=== PATIENT | female | born 2000 | race Caucasian/White ===

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

== ENCOUNTER 2022-07-05 15:05 | Outpatient (CLI) | payer OTHER, SELFPAY ==
[2022-07-05 15:45] LABS: Strep Group A RT-PCR Negative (Negative)
[2022-07-05 15:56] LABS: Influenza A QL RT-PCR Negative (Negative); Influenza B QL RT-PCR Negative (Negative); SARS-CoV-2 RNA PCR Positive (Negative)
== END 2022-07-05 15:06 | disposition home or self-care (01) ==
PROVIDERS: PCP Internal Medicine; Visit Provider Nurse Practitioner Family
DX: U07.1 COVID-19 (principal); J06.9 Acute upper respiratory infection, unspecified; J02.9 Acute pharyngitis, unspecified
CPT/HCPCS: 87502; 87651; C9803; U0003; U0005

== ENCOUNTER 2022-07-06 00:04 | Emergency (ER) | payer OTHER, SELFPAY ==
--- NOTE | ~2022-07-06 | XR_ITS ---
EXAMINATION: XR chest 1V portable DATE: 07/06/2022 02:05 INDICATION: Dyspnea. COVID positive. TECHNIQUE: frontal view of the chest was obtained. COMPARISON: None FINDINGS: The lungs are clear with no focal airspace opacities, pulmonary edema, pleural effusion or pneumothor ax. The cardiomediastinal silhouette is normal. Visualized bones and soft tissues are unremarkable. IMPRESSION: 1. No acute cardiopulmonary disease. Reviewed, dictated and finalized at location A.
[2022-07-06 00:18] VITALS: BP 128/52; PULSE 115; RESP 20; TEMP 37.4; O2SAT 99
--- NOTE | 2022-07-06 00:27 | ECG_ITS ---
Measurements Intervals [place] Rate: 131 P: 43 IA: 134 QRS: 64 QRSD: 72 T: 19 QT: 304 QTc: 450 Interpretive Statements SINUS TACHYCARDIA NONSPECIFIC T-WAVE ABNORMALITY ABNORMAL ECG NO PREVIOUS ECG AVAILABLE FOR COMPARISON Electronically Signed On 07-06-2022 8:41:56 CDT by Prince Herr M.D.
[2022-07-06] MEDS: ACETAMINOPHEN 500 MG TABLET 1000 MG PO (00:28)
[2022-07-06] MEDS: IBUPROFEN 400 MG TABLET 800 MG PO (00:29)
[2022-07-06] MEDS: SODIUM CHLORIDE 0.9% IV 1,000 ML 999 ML IV CONT (00:47)
[2022-07-06 00:59] VITALS: BP 122/68; PULSE 120; RESP 20; O2SAT 98
--- NOTE | 2022-07-06 01:04 | ED.GENADULT ---
HPI - General Adult General Chief complaint: Upper Respiratory Infection Stated complaint: Generalized body aches History of Present Illness HPI narrative: is a 21-year-old female who was recently diagnosed with COVID presented ED with flu-like symptoms. The last 2 days she has been having headaches, body aches, decreased oral intake cough and congestion. She wants our primary care physician and obtain a COVID swab earlier today except she did not hear back on what the results were. The patient denies nausea vomiting or diarrhea. She denies chest pain or shortness of breath.She denies lower extremity edema or history of blood clots. Patient is vaccinated against COVID-19. Related Data Home Medications Medication Instructions Recorded Confirmed omeprazole 20 mg capsule,delayed 20 mg PO DAILY 06/02/21 07/06/22 release oxcarbazepine 300 mg tablet 300 mg PO BID 06/02/21 07/06/22 sertraline 100 mg tablet 150 mg PO DAILY 06/02/21 07/06/22 medroxyprogesterone 150 mg/mL 150 mg IM MONTHLY 07/06/22 07/06/22 intramuscular suspension nortriptyline 50 mg capsule 50 mg PO HS 07/06/22 07/06/22 trazodone 50 mg tablet 50 mg PO HS 07/06/22 07/06/22 Allergies Allergy/AdvReac Type Severity Reaction Status Date / Time No Known Allergies Allergy Verified 05/03/21 21:47 Review of Systems Review of Systems: CONSTITUTIONAL: Denies night sweats. EYES: No eye pain ENT: Denies rhinorrhea CARDIOVASCULAR: Denies palpitations RESPIRATORY: Denies hemoptysis GASTROINTESTINAL: Denies hematemesis GENITOURINARY: Denies hematuria. SKIN: Denies rash MUSCULOSKELETAL: Denies myalgia. NEUROLOGIC: Denies weakness. PSYCHIATRIC: Denies delusions PMFSH Past Medical History Medical History GERD (gastroesophageal reflux disease) Mood disorder Surgical History Surgical History No significant past surgical history Family History Family History Father Hypertension Diabetes mellitus Hyperlipidemia Social History Social History Smoking status: Never smoker Alcohol intake: never Additional occupation/education comments: works at [employer] [place] Gender identity (if verbalized by the patient): Female Sexual Orientation (if Verbalized by the Patient): Straight or Heterosexual Exam Narrative: APPEARANCE: No apparent distress. Head atraumatic. EYES: PERRLA/EOMI, NOSE: Normal no drainage NECK: Supple, Trachea midline RESPIRATORY: CTAB, No increased work of breathing. CARDIOVASCULAR: S1S2 appreciated, Tachycardic ABDOMINAL: Soft, nontender, nondistended, MUSCULOSKELETAl: No obvious deformities NEURO: Alert. Moving 4/4 extremities SKIN:: Warm, dry. Normal color PSYCHIATRIC: Normal affect Course Vital Signs Vital signs: Vital Signs Temperature 99.3 F 07/06/22 00:18 Pulse Rate 115 H 07/06/22 00:18 Respiratory Rate 20 07/06/22 00:18 Blood Pressure 128/52 L 07/06/22 00:18 Pulse Oximetry 99 07/06/22 00:18 Oxygen Delivery Room Air 07/06/22 00:18 Temperature 99.3 F 07/06/22 00:18 Pulse Rate 120 H 07/06/22 00:59 Respiratory Rate 20 07/06/22 00:59 Blood Pressure 122/68 07/06/22 00:59 Pulse Oximetry 98 07/06/22 00:59 Oxygen Delivery Room Air 07/06/22 00:59 Medical Decision Making [facility] Narrative Medical decision making narrative: this is a 21-year-old female presenting with flu-like symptoms after a positive COVID test. Patient was tachycardic here in the emergency department. Chest x-ray an EKG that order. She has been given a L of fluid. She has been given Motrin Tylenol for symptom control. Chest x-ray was unremarkable. EKG interpretation: Rhythm Sinus tachycardia, Rate 131, [place] -[normal], [place] -[normal], QRS [narrow], QTC [normal], T waves -[negative f
[2022-07-06 01:43] LABS: Basophils Absolute Auto 0.01 K/mm3 (0.00-0.10); Basophils Percent Auto 0.2 % (0.0-1.0); Eosinophils Absolute Auto 0.04 K/mm3 (0.02-0.50); Eosinophils Percent Auto 0.7 % (1.0-6.0); Hematocrit 36.7 % (35.0-49.0); Hemoglobin 11.9 g/dL (12.0-15.0); Immature Granulocyte Absolute 0.01 K/mm3 (0.00-0.00); Immature Granulocyte Percent A 0.2 % (0.0-0.0); Lymphocytes Absolute Auto 0.72 K/mm3 (1.10-4.50); Lymphocytes Percent Auto 12.5 % (18.0-42.0); Mean Corpuscular HGB Conc 32.4 g/dL (32.0-36.0); Mean Corpuscular Hemoglobin 25.6 pg (27.0-31.0); Mean Corpuscular Volume 79.1 fL (78.0-102.0); Mean Platelet Volume 9.6 fl (9.2-11.8); Monocytes Absolute Auto 0.51 K/mm3 (0.10-0.90); Monocytes Percent Auto 8.9 % (2.0-11.0); Neutrophils Absolute Auto 4.5 K/mm3 (1.7-7.2); Neutrophils Percent Auto 77.5 % (50.0-70.0); Platelet Count Result 217 K/mm3 (150-420); Red Blood Count 4.64 M/mm3 (4.20-5.40); Red Cell Distribution Width 13.7 % (11.6-14.4); White Blood Count 5.7 K/mm3 (4.8-10.8)
[2022-07-06 01:50] VITALS: TEMP 37.2
[2022-07-06 01:51] VITALS: TEMP 37.2
[2022-07-06 01:55] LABS: Anion Gap 11 mmol/L (8-16); Blood Urea Nitrogen 7 mg/dL (7-18); Calcium 8.4 mg/dL (8.5-10.1); Carbon Dioxide 23 mmol/L (21-32); Chloride 103 mmol/L (98-108); Estimated CRCL calculation 117 ml/min; Estimated Glomerular Filt Rate > 60; Glucose 133 mg/dL (70-99); Osmolality Calculated 284 mOsm/kg (285-295); Potassium 3.6 mmol/L (3.5-5.1); Sodium 137 mmol/L (136-145)
[2022-07-06 01:59] LABS: D Dimer 0.35 mg/L (0.19-0.50)
[2022-07-06 02:10] VITALS: BP 128/67; PULSE 120; RESP 20; TEMP 37.3; O2SAT 99
== END 2022-07-06 02:17 | disposition home or self-care (01) ==
PROVIDERS: Emergency Provider Emergency Medicine; PCP Internal Medicine
DX: U07.1 COVID-19 (principal)
CPT/HCPCS: 36415; 71045; 80048; 85025; 85380; 93005; 96360; 99283; A9270; J7030

== ENCOUNTER 2022-08-25 13:42 | Outpatient (CLI) | payer OTHER, SELFPAY ==
[2022-08-25 13:57] LABS: Basophils Absolute Auto 0.03 K/mm3 (0.00-0.10); Basophils Percent Auto 0.3 % (0.0-1.0); Eosinophils Absolute Auto 0.08 K/mm3 (0.02-0.50); Eosinophils Percent Auto 0.8 % (1.0-6.0); Hematocrit 40.4 % (35.0-49.0); Hemoglobin 13.3 g/dL (12.0-15.0); Immature Granulocyte Absolute 0.04 K/mm3 (0.00-0.00); Immature Granulocyte Percent A 0.4 % (0.0-0.0); Lymphocytes Absolute Auto 2.43 K/mm3 (1.10-4.50); Lymphocytes Percent Auto 25.5 % (18.0-42.0); Mean Corpuscular HGB Conc 32.9 g/dL (32.0-36.0); Mean Corpuscular Volume 78.9 fL (78.0-102.0); Mean Platelet Volume 9.8 fl (9.2-11.8); Monocytes Absolute Auto 0.47 K/mm3 (0.10-0.90); Monocytes Percent Auto 4.9 % (2.0-11.0); Neutrophils Absolute Auto 6.5 K/mm3 (1.7-7.2); Neutrophils Percent Auto 68.1 % (50.0-70.0); Platelet Count Result 265 K/mm3 (150-420); Red Blood Count 5.12 M/mm3 (4.20-5.40); White Blood Count 9.5 K/mm3 (4.8-10.8)
[2022-08-25 13:59] LABS: Appearance Urine Clear (Clear); Bilirubin Urine Negative (Negative); Glucose Urine UA Negative (Negative); Ketones Urine Negative (Negative); Leukocyte Esterase Ur Negative LEU/UL (Negative); Nitrate Urine Negative (Negative); Protein Urine Negative (Negative); Urobilinogen Urine 0.2 mg/dL (0.2-1.0); pH Urine 6.5 (5.0-8.0)
[2022-08-25 14:28] LABS: Add Urine Microscopic? YES; Bacteria Urine 1+ /hpf; Blood Urine Trace-Intact (Negative); Color Urine Light Yellow (Yellow); RBC Urine 0-2 /hpf (0-2); Squamous Epithelial Cell Urine Few /hpf (Few); WBC Urine None seen /hpf (0-3)
[2022-08-25 15:00] LABS: Alanine Aminotransferase 23 U/L (14-59); Anion Gap 9 mmol/L (8-16); Aspartate Amino Transferase 19 U/L (15-37); Bilirubin,Total 0.5 mg/dL (0.00-1.00); Blood Urea Nitrogen 9 mg/dL (7-18); CRP 1.4 mg/dL (0.0-0.9); Carbon Dioxide 26 mmol/L (21-32); Chloride 104 mmol/L (98-108); Estimated Glomerular Filt Rate > 60; Ferritin 50 ng/mL (8-252); Glucose 97 mg/dL (70-99); Osmolality Calculated 286 mOsm/kg (285-295); Potassium 4.1 mmol/L (3.5-5.1); Sodium 139 mmol/L (136-145); Total Protein 7.4 g/dL (6.4-8.2)
[2022-08-25 15:01] LABS: Alkaline Phosphatase 112 U/L (50-130)
[2022-08-25 15:02] LABS: SPREG INTERNAL CONTROL Positive; Serum Qual hCG Negative
[2022-08-25 15:14] LABS: Amylase 46 U/L (25-115); Lipase 86 U/L (73-393)
== END 2022-08-25 13:43 | disposition home or self-care (01) ==
LOC: CHSLAB 13:44
PROVIDERS: PCP Internal Medicine; Visit Provider Internal Medicine
DX: R10.9 Unspecified abdominal pain (principal); E61.1 Iron deficiency
CPT/HCPCS: 36415; 80053; 81001; 82150; 82728; 83690; 84703; 85025; 86140

== ENCOUNTER 2022-09-06 07:21 | Outpatient (CLI) | payer OTHER, SELFPAY ==
--- NOTE | ~2022-09-06 | US_ITS ---
EXAMINATION: US pelvic complete w TV DATE: 09/06/2022 08:03 INDICATION: Bilateral pelvic pain TECHNIQUE: Multiple transabdominal and endovaginal sonographic images of the pelvis were obtained. COMPARISON: 04/24/2021 FINDINGS: The uterus measures 7.7 x 5.2 x 3.7 cm. The endometrial complex measures 6 mm. The right ov alden measures 2.6 x 1.8 x 1.7 cm. The left ovary measures 2.6 x 1.6 x 2.0 cm. There is normal vascular flow in the ovaries. There is no free fluid in the pelvis. IMPRESSION: 1. No sonographic correlate for the patient's symptoms. Reviewed, dictated and finalized at location A.
--- NOTE | ~2022-09-06 | US_ITS ---
EXAMINATION: US abdomen complete DATE: 09/06/2022 08:01 INDICATION: Abdominal pain and nausea TECHNIQUE: Multiple grayscale and Doppler ultrasound images of the abdomen were obtained. COMPARISON: None available FINDINGS: Bowel gas obscures visualization of the pancreas. The visualized portions of the pancreas a re unremarkable. The liver is normal with normal echogenicity and echotexture. No surface nodularity. Normal hepatopetal flow in the main portal vein. The gallbladder is normal with no abnormal wall thi ckening, pericholecystic fluid or stones. The normal common bile duct measures 3 mm. There was no son ographic Keith sign. The visualized portions of the aorta and inferior vena cava are normal. The right kidney measures 12.1 x 5.8 x 4.1 cm. The left kidney measures 11.2 x 4.9 x 5.3 cm. The kidn eys demonstrate normal parenchymal echogenicity. There is no hydronephrosis. The spleen is normal in appearance and measures 10.4 cm. IMPRESSION: 1. No sonographic correlate for the patient's symptoms. Reviewed, dictated and finalized at location A.
== END 2022-09-06 07:22 | disposition home or self-care (01) ==
LOC: CHSIMG 07:23
PROVIDERS: PCP Internal Medicine; Visit Provider Internal Medicine
DX: R10.9 Unspecified abdominal pain (principal)
CPT/HCPCS: 76700; 76830; 76856

== ENCOUNTER 2022-10-25 15:54 | Emergency (ER) | payer OTHER, SELFPAY ==
[2022-10-25 16:06] VITALS: PULSE 117; RESP 18; TEMP 36.6; O2SAT 98
--- NOTE | 2022-10-25 16:16 | PC.NURSE ---
Pt states she hasn't taken her daily meds for the last two days due to not feeling well.
--- NOTE | 2022-10-25 16:25 | ED.URI ---
HPI - URI/Sore Throat General Chief Complaint: Upper Respiratory Infection Stated Complaint: fever,bodyaches,vomiting starte coupledays ago Time Seen by Provider: 10/25/22 16:10 Source: patient and RN notes reviewed Mode of arrival: ambulatory Limitations: no limitations History of Present Illness MD elicited complaint: fever (102.0) and cough Onset (ago): day(s) (2 Sat AM at 10 AM) Consistency: constant Severity: moderate Description of mucous: clear Able to tolerate fluids by mouth: Yes Exacerbating factors: nothing Relieving factors: nothing Context: other(s) with similar symptoms Associated symptoms: chills, myalgias and headache Treatments prior to arrival: acetaminophen Related Data Home Medications Medication Instructions Recorded Confirmed omeprazole 20 mg capsule,delayed 20 mg PO DAILY 06/02/21 07/06/22 release oxcarbazepine 300 mg tablet 300 mg PO BID 06/02/21 07/06/22 sertraline 100 mg tablet 150 mg PO DAILY 06/02/21 07/06/22 medroxyprogesterone 150 mg/mL 150 mg IM MONTHLY 07/06/22 07/06/22 intramuscular suspension nortriptyline 50 mg capsule 50 mg PO HS 07/06/22 07/06/22 trazodone 50 mg tablet 50 mg PO HS 07/06/22 07/06/22 Allergies Allergy/AdvReac Type Severity Reaction Status Date / Time No Known Allergies Allergy Verified 10/25/22 16:13 [facility] Past Medical History Medical History GERD (gastroesophageal reflux disease) Mood disorder Surgical History Surgical History No significant past surgical history Family History Family History Father Hypertension Diabetes mellitus Hyperlipidemia Social History Social History Smoking status: Never smoker Alcohol intake: never Additional occupation/education comments: works at [employer] Gender identity (if verbalized by the patient): Female Sexual Orientation (if Verbalized by the Patient): Straight or Heterosexual Exam Const: General: healthy appearing, no acute distress and alert Nutritional Appearance: well nourished and obese Orientation/consciousness: patient oriented x3 Limitations: no limitations Other: Female tech in the room during examination. HENMT: Head: normal to inspection Ears: external ears normal Eyes: Conjunctivae: conjunctivae normal Pupils: Equal, round and reactive pupils present EOM: EOMs intact bilaterally Neck: Neck: normal visual inspection Resp: Effort & Inspection: normal respiratory effort Auscultation: clear to auscultation bilaterally Cardio: Rate: regular rate Rhythm: regular rhythm GI: GI Palp: Yes Soft to palpation and No Tenderness to palpation present (GI) Auscultation: normal bowel sounds Back/Spine/Pelvis: Cervical Spine: cervical ROM normal Thoracic/Lumbar Spine: thoraco-lumbar ROM normal Skin: General skin exam: normal color Rashes: no rashes Neuro: General: patient oriented x3, moves all extremities, no focal motor deficits and CN's II-XI intact bilaterally Speech: normal speech Gait exam (Neuro): Normal gait present Extrem: General: normal to inspection and no clubbing, cyanosis or edema Psych: Mental Status: mental status grossly normal Affect: normal affect Attitude: cooperative Course Course Emergency Course: I explained the patient that since she is more than 48 hours from start of symptoms that the Tamiflu medication will not work for her. She voiced understanding will get [id number] flu medicine to treat her symptoms. Vital Signs Vital signs: Vital Signs Temperature 36.6 C 10/25/22 16:06 Pulse Rate 117 H 10/25/22 16:06 Respiratory Rate 18 10/25/22 16:06 Pulse Oximetry 98 10/25/22 16:06 Oxygen Delivery Room Air 10/25/22 16:06 Temperature 36.1 C L 10/25/22 17:00 Pulse Rate 111 H 10/25/22 17:00 Respiratory Rate 1
--- NOTE | 2022-10-25 16:34 | PC.NURSE ---
accompanied Dr with examination.
[2022-10-25 16:40] LABS: Influenza A QL RT-PCR Positive (Negative); Influenza B QL RT-PCR Negative (Negative); SARS-CoV-2 RNA PCR Negative (Negative)
[2022-10-25 17:00] VITALS: BP 127/79; PULSE 111; RESP 18; TEMP 36.1; O2SAT 96
== END 2022-10-25 17:02 | disposition home or self-care (01) ==
PROVIDERS: Emergency Provider Emergency Medicine; PCP Internal Medicine
DX: J11.1 Influenza due to unidentified influenza virus with other respiratory manifestations (principal); Z20.822 Contact with and (suspected) exposure to COVID-19
CPT/HCPCS: 87636; 99283

== ENCOUNTER 2022-12-28 10:50 | Outpatient (CLI) | payer OTHER, SELFPAY ==
--- NOTE | ~2022-12-28 | XR_ITS ---
EXAMINATION: XR sinus min 3V INDICATION: Frequent upper respiratory tract infections, bilateral maxillary sinus infections TECHNIQUE: Four views of the paranasal sinuses are obtained on five radiographs COMPARISON: None available FINDINGS: The paranasal sinuses are well pneumatized. No definite sinus opacification is seen. Slight leftward deviation of the nasal septum. No facial fracture is identified. The soft tissues are unrem arkable. Impacted maxillary and mandibular molars are noted. IMPRESSION: 1. No evidence of sinusitis. If there is high clinical suspicion for sinusitis, CT of the sinuses is recommended. Reviewed, dictated and finalized at location L. INE OPERATOR
[2022-12-28 11:23] LABS: Basophils Absolute Auto 0.02 K/mm3 (0.00-0.10); Basophils Percent Auto 0.2 % (0.0-1.0); Eosinophils Absolute Auto 0.02 K/mm3 (0.02-0.50); Eosinophils Percent Auto 0.2 % (1.0-6.0); Hematocrit 40.7 % (35.0-49.0); Hemoglobin 13.2 g/dL (12.0-15.0); Immature Granulocyte Absolute 0.06 K/mm3 (0.00-0.00); Immature Granulocyte Percent A 0.5 % (0.0-0.0); Lymphocytes Absolute Auto 2.13 K/mm3 (1.10-4.50); Lymphocytes Percent Auto 16.9 % (18.0-42.0); Mean Corpuscular HGB Conc 32.4 g/dL (32.0-36.0); Mean Corpuscular Hemoglobin 26.1 pg (27.0-31.0); Mean Corpuscular Volume 80.6 fL (78.0-102.0); Mean Platelet Volume 9.4 fl (9.2-11.8); Monocytes Absolute Auto 0.63 K/mm3 (0.10-0.90); Neutrophils Absolute Auto 9.8 K/mm3 (1.7-7.2); Neutrophils Percent Auto 77.2 % (50.0-70.0); Platelet Count Result 284 K/mm3 (150-420); Red Blood Count 5.05 M/mm3 (4.20-5.40); Red Cell Distribution Width 13.7 % (11.6-14.4); White Blood Count 12.6 K/mm3 (4.8-10.8)
[2022-12-28 11:47] LABS: Alanine Aminotransferase 36 U/L (14-59); Albumin Level 3.8 g/dL (3.4-5.0); Alkaline Phosphatase 90 U/L (46-116); Anion Gap 8 mmol/L (8-16); Aspartate Amino Transferase 11 U/L (15-37); Bilirubin,Total 0.4 mg/dL (0.00-1.00); Blood Urea Nitrogen 12 mg/dL (7-18); Calcium 8.9 mg/dL (8.5-10.1); Carbon Dioxide 26 mmol/L (21-32); Chloride 103 mmol/L (98-108); Estimated Glomerular Filt Rate > 60; Glucose 125 mg/dL (70-99); Osmolality Calculated 284 mOsm/kg (285-295); Potassium 4.1 mmol/L (3.5-5.1); Sodium 137 mmol/L (136-145); Total Protein 7.3 g/dL (6.4-8.2)
== END 2022-12-28 10:51 | disposition home or self-care (01) ==
LOC: CHSLAB 10:52
PROVIDERS: PCP Internal Medicine; Visit Provider Nurse Practitioner Family
DX: R21 Rash and other nonspecific skin eruption (principal); J06.9 Acute upper respiratory infection, unspecified; J32.0 Chronic maxillary sinusitis
CPT/HCPCS: 36415; 70220; 80053; 85025

== ENCOUNTER 2023-01-24 13:46 | Outpatient (CLI) | payer OTHER, SELFPAY ==
[2023-01-24 14:30] LABS: Strep Group A RT-PCR NOT DETECTED (Negative)
[2023-01-24 14:32] LABS: SARS-CoV-2 RNA PCR Negative (Negative)
== END 2023-01-24 13:47 | disposition home or self-care (01) ==
LOC: CHSLAB 13:47
PROVIDERS: PCP Internal Medicine; Visit Provider Internal Medicine
DX: J02.9 Acute pharyngitis, unspecified (principal); Z20.822 Contact with and (suspected) exposure to COVID-19
CPT/HCPCS: 87651; U0003; U0005

== ENCOUNTER 2023-01-28 11:19 | Outpatient (CLI) | payer OTHER, SELFPAY ==
[2023-01-28 11:32] LABS: Basophils Absolute Auto 0.04 K/mm3 (0.00-0.10); Basophils Percent Auto 0.5 % (0.0-1.0); Eosinophils Absolute Auto 0.12 K/mm3 (0.02-0.50); Eosinophils Percent Auto 1.5 % (1.0-6.0); Hematocrit 39.5 % (35.0-49.0); Hemoglobin 13.2 g/dL (12.0-15.0); Immature Granulocyte Absolute 0.02 K/mm3 (0.00-0.00); Immature Granulocyte Percent A 0.3 % (0.0-0.0); Lymphocytes Absolute Auto 2.08 K/mm3 (1.10-4.50); Lymphocytes Percent Auto 26.5 % (18.0-42.0); Mean Corpuscular HGB Conc 33.4 g/dL (32.0-36.0); Mean Corpuscular Hemoglobin 26.8 pg (27.0-31.0); Mean Corpuscular Volume 80.1 fL (78.0-102.0); Mean Platelet Volume 9.7 fl (9.2-11.8); Monocytes Percent Auto 6.4 % (2.0-11.0); Neutrophils Absolute Auto 5.1 K/mm3 (1.7-7.2); Neutrophils Percent Auto 64.8 % (50.0-70.0); Platelet Count Result 259 K/mm3 (150-420); Red Blood Count 4.93 M/mm3 (4.20-5.40); Red Cell Distribution Width 13.1 % (11.6-14.4); White Blood Count 7.9 K/mm3 (4.8-10.8)
[2023-01-28 12:37] LABS: Alanine Aminotransferase 36 U/L (14-59); Albumin Level 3.7 g/dL (3.4-5.0); Alkaline Phosphatase 88 U/L (46-116); Anion Gap 12 mmol/L (8-16); Aspartate Amino Transferase 17 U/L (15-37); Bilirubin,Total 0.3 mg/dL (0.00-1.00); Blood Urea Nitrogen 7 mg/dL (7-18); Calcium 8.9 mg/dL (8.5-10.1); Carbon Dioxide 26 mmol/L (21-32); Chloride 105 mmol/L (98-108); Estimated Glomerular Filt Rate > 60; Glucose 112 mg/dL (70-99); Osmolality Calculated 295 mOsm/kg (285-295); Potassium 3.6 mmol/L (3.5-5.1); Sodium 143 mmol/L (136-145)
[2023-01-28 14:23] LABS: Hemoglobin A1C 5.5 % (<5.7)
== END 2023-01-28 11:20 | disposition home or self-care (01) ==
LOC: CHSLAB 11:21
PROVIDERS: PCP Internal Medicine; Visit Provider Nurse Practitioner Family
DX: R94.5 Abnormal results of liver function studies (principal); J01.00 Acute maxillary sinusitis, unspecified
CPT/HCPCS: 36415; 80053; 83036; 85025

== ENCOUNTER 2023-04-08 10:51 | Outpatient (CLI) | payer OTHER, SELFPAY ==
--- NOTE | ~2023-04-08 | XR_ITS ---
EXAMINATION: XR thoracic spine 3V DATE: 04/08/2023 11:19 INDICATION: Thoracic spine pain. Fall. TECHNIQUE: 3 views of thoracic spine were obtained. COMPARISON: None. FINDINGS: There is 3 degrees dextrocurvature of thoracic spine. Vertebral body heights are normal. In tervertebral disc heights are normal. There are endplate osteophytes at multiple levels. IMPRESSION: 1. Mild thoracic spondylosis. Reviewed, dictated and finalized at location A.
--- NOTE | ~2023-04-08 | XR_ITS ---
EXAMINATION: XR pelvis 1-2V DATE: 04/08/2023 11:19 INDICATION: Pelvic pain. Fall down stairs. TECHNIQUE: An anteroposterior view of the pelvis was obtained. COMPARISON: CT abdomen and pelvis 05/03/2021 FINDINGS: Bone alignment is normal. No fracture. Joint spaces are well maintained. IMPRESSION: 1. Normal pelvis. Reviewed, dictated and finalized at location A. IMPRESSION: 1. Normal pelvis.
== END 2023-04-08 10:52 | disposition home or self-care (01) ==
LOC: CHSIMG 10:55
PROVIDERS: PCP Internal Medicine; Visit Provider Nurse Practitioner Family
DX: M54.6 Pain in thoracic spine (principal); M43.04 Spondylolysis, thoracic region
CPT/HCPCS: 72072; 72170

== ENCOUNTER 2023-07-08 13:50 | Outpatient (CLI) | payer OTHER, SELFPAY ==
--- NOTE | ~2023-07-08 | XR_ITS ---
EXAM: XR lumbar spine 2-3V DATE: 07/08/2023 14:22 HISTORY: LOW BACK PAIN/PARESTHESIA OF LEG, more to RTsidefall in March . COMPARISON: None available. FINDINGS: IUD. 5 nonrib-bearing lumbar-type vertebral bodies. Bilateral sacralization of L5. Pedicle s intact. 2 mm retrolisthesis at L4-5. Vertebral body heights preserved. Disc spaces maintained. Norm al facets and posterior elements. No fracture or dislocation. IMPRESSION: Bilateral sacralization of L5. Grade 1 retrolisthesis at L4-5. Reviewed, dictated and finalized at location K.
[2023-07-08 14:04] LABS: Basophils Absolute Auto 0.02 K/mm3 (0.00-0.10); Basophils Percent Auto 0.3 % (0.0-1.0); Eosinophils Absolute Auto 0.07 K/mm3 (0.02-0.50); Eosinophils Percent Auto 0.9 % (1.0-6.0); Hematocrit 38.6 % (35.0-49.0); Hemoglobin 13.1 g/dL (12.0-15.0); Immature Granulocyte Absolute 0.02 K/mm3 (0.00-0.00); Immature Granulocyte Percent A 0.3 % (0.0-0.0); Lymphocytes Absolute Auto 2.05 K/mm3 (1.10-4.50); Lymphocytes Percent Auto 26.8 % (18.0-42.0); Mean Corpuscular HGB Conc 33.9 g/dL (32.0-36.0); Mean Corpuscular Hemoglobin 28.2 pg (27.0-31.0); Mean Platelet Volume 9.3 fl (9.2-11.8); Monocytes Absolute Auto 0.37 K/mm3 (0.10-0.90); Monocytes Percent Auto 4.8 % (2.0-11.0); Neutrophils Absolute Auto 5.1 K/mm3 (1.7-7.2); Neutrophils Percent Auto 66.9 % (50.0-70.0); Platelet Count Result 255 K/mm3 (150-420); Red Blood Count 4.65 M/mm3 (4.20-5.40); Red Cell Distribution Width 12.7 % (11.6-14.4); White Blood Count 7.6 K/mm3 (4.8-10.8)
[2023-07-08 14:56] LABS: Thyroid Stimulating Hormone 2.15 uIU/mL (0.36-3.74)
[2023-07-08 15:07] LABS: CRP 1.6 mg/dL (0.0-0.9)
== END 2023-07-08 13:51 | disposition home or self-care (01) ==
LOC: CHSLAB 13:52
PROVIDERS: PCP Internal Medicine; Visit Provider Internal Medicine
DX: M54.50 Low back pain, unspecified (principal); R20.0 Anesthesia of skin; M43.16 Spondylolisthesis, lumbar region
CPT/HCPCS: 36415; 72100; 84443; 85025; 86140

== ENCOUNTER 2023-07-19 08:48 | Outpatient (RCR) | payer OTHER, SELFPAY ==
--- NOTE | 2023-07-19 10:06 | PTOPEVAL1 ---
Assessment and note entered by Tami Castillo, PT Evaluation Information Assessment Status Evaluation Diagnosis L4-5 Spondylolithesis Onset 07/15/23 Subjective Information Etta reports she fell down a flight of stairs in March 2023. She had x-rays done and they were negative for fractures but she reports she was told she has two displaced discs. She has been having pain since the fall that is in the lower back and mid back. She notes shooting pain in both legs to her feet when she lifts heavy things ( over 20 lbs). She also notes an increase in pain with standing more than 30 minutes or driving more than 30 minutes. She is able to work through her pain. 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 She is able to perform daily activities without a problem. She was using ibuprofen for pain but started a steroid on . She is noting a little less pain since starting the steroid but she still has difficulty lifting. Reported Pain Level Pain Score 1: Self Report Assessment PT Clinical Summary Etta Ackerman presents with lower back pain that started after falling down a flight of stairs in March 2023. She has been diagnosed with L4-5 spondylolithesis. She reports difficulty lifting more than 20 lbs, driving more than 30 minutes, and standing more than 30 minutes. This leads to difficulty with performing job tasks at a [employer]. She objectively demonstrates painful lateral flexion lumbar AROM bilaterally, tenderness at L4-5 spinous processes and lumbar paraspinals, positive special tests for left lumbar nerve root irritation, decreased core and gluteal strength, and decreased functional abilities. She will benefit from skilled PT to address these limitations and for education in proper body mechanics and postural training. Plan of Care Interventions Electrical Stimulation,Hot Pack/Cold Pack,Manual Therapy,Neuro Re-education,Patient/Caregiver Educati,Therapeutic Activities,Therapeutic Exercise PT Services Indicated Yes Treatment Frequency and 2 times a week for 10 visits Duration These treatments will address the objective and functional deficits as define
--- NOTE | 2023-07-19 10:06 | OPREHPOC ---
Outpatient Therapy Plan of Care This is a Multidisciplinary Plan of Care that may contain components documented by all disciplines (PT, OT, and ST.) PT Problem 1 PT Problem #1 Knowledge Deficit PT Goal 1 Goal The patient will be independent in a home exercise program to continue after discharge from formal skilled PT. Target Visit 10 PT Problem 2 PT Problem #2 Pain PT Goal 1 Goal The patient will report no greater than 3/10 pain with standing for an entire work shift. Target Visit 10 PT Problem 3 PT Problem #3 Impaired Functional Mobil PT Goal 1 Goal The patient will demonstrate the ability to lift 25 lbs from floor to waist with proper body mechanics and no greater than 2/10 low back pain. PT Problem 4 PT Problem #4 Impaired Strength PT Goal 1 Goal The patient will improve lower abdominal, lower back extensor, and gluteus tamara strength to at least 4/5 to support the spine for lifting. Target Visit 10
--- NOTE | 2023-09-13 17:09 | PTOPPROG ---
Assessment and note entered by Tami Castillo, PT Evaluation Information Assessment Status Progress Diagnosis L4-5 Spondylolithesis with pain and radiculopathy Onset 07/15/23 Subjective Information Etta Ackerman reports her low back pain has not really changed since she was last seen in physical therapy. She notes she still gets increased pain with sitting or driving more than 30 minutes as well as with lifting more than 20 lbs. 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 She has increased pain when standing to wash dishes and also notes when she hits a bump in the road while driving, she gets a sharp pain in her lower back. Assessment PT Clinical Summary Etta Ackerman presents to skilled physical therapy nearly 2 months after her initial evaluation. She reports she was waiting on insurance authorization to continue PT. She is noting no change in low back and lower extremity pain. She continues to have increased pain with sitting or driving more than 30 minutes, standing more than 30 minutes, lifting more than 20 lbs, and hitting bumps in the road while driving. 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 She objectively demonstrates decreased core strength, tenderness on the right SIJ, decreased bilateral hamstring length, and decreased functional abilities. She will benefit from skilled PT to address these limitations. Plan of Care Interventions Electrical Stimulation,Hot Pack/Cold Pack,Manual Therapy,Neuro Re-education,Patient/Caregiver Educati,Therapeutic Activities,Therapeutic Exercise PT Services Indicated Yes Treatment Frequency and Continue skilled PT 2 times a week for 10 visits Duration total These treatments will address the objective and functional deficits as defined above. The patient will be advanced safely and appropriately in order for the patient to progress towards his/her prior level of function. Additional exercises will be introduced and as well as a comprehensive home exercise program upon discharge, if needed, ?to ensure carryover of functional gains achieved in the clinic. This treatment plan has been reviewed and agreement upon by the patient.
--- NOTE | 2023-09-13 17:09 | OPREHPOC ---
Outpatient Therapy Plan of Care This is a Multidisciplinary Plan of Care that may contain components documented by all disciplines (PT, OT, and ST.) PT Problem 1 PT Problem #1 Knowledge Deficit PT Goal 1 Goal The patient will be independent in a home exercise program to continue after discharge from formal skilled PT. Target Visit 10 Progress Not Met Comment continue PT Problem 2 PT Problem #2 Pain PT Goal 1 Goal The patient will report no greater than 3/10 pain with standing for an entire work shift. Target Visit 10 Progress Not Met Comment continue PT Problem 3 PT Problem #3 Impaired Functional Mobil PT Goal 1 Goal The patient will demonstrate the ability to lift 25 lbs from floor to waist with proper body mechanics and no greater than 2/10 low back pain. Progress Not Met Comment continue PT Problem 4 PT Problem #4 Impaired Strength PT Goal 1 Goal The patient will improve lower abdominal, lower back extensor, and gluteus tamara strength to at least 4/5 to support the spine for lifting. Target Visit 10 Progress Not Met Comment continue
--- NOTE | 2023-12-06 13:51 | PCPTNOTE ---
12/06/23: Pt has not been seen for PT since 09/13/23. She will be discharged. -Tami Castillo, PT
== END 2023-09-13 23:59 | disposition home or self-care (01) ==
LOC: CHSPT 08:48
PROVIDERS: PCP Internal Medicine; Visit Provider Internal Medicine
DX: M43.16 Spondylolisthesis, lumbar region (principal); M54.50 Low back pain, unspecified; M54.16 Radiculopathy, lumbar region
CPT/HCPCS: 97014; 97110; 97140; 97161; G0283

== ENCOUNTER 2023-09-06 09:06 | Outpatient (CLI) | payer OTHER, SELFPAY ==
--- NOTE | ~2023-09-06 | XR_ITS ---
XR sinus min 3V DATE: 09/06/2023 09:32 INDICATION: Cough and congestion for 5 days TECHNIQUE: 4 views COMPARISON: None FINDINGS: The paranasal sinuses and mastoid air cells are normally developed and aerated. No air-flui d level or opacification of any of the paranasal sinuses is noted. Bony sinus cameron appear normal. IMPRESSION: Negative Reviewed, dictated and finalized at location L. IMPRESSION: Negative
[2023-09-06 09:23] LABS: Basophils Absolute Auto 0.03 K/mm3 (0.00-0.10); Basophils Percent Auto 0.4 % (0.0-1.0); Eosinophils Absolute Auto 0.05 K/mm3 (0.02-0.50); Eosinophils Percent Auto 0.7 % (1.0-6.0); Hematocrit 38.7 % (35.0-49.0); Hemoglobin 13.2 g/dL (12.0-15.0); Immature Granulocyte Absolute 0.03 K/mm3 (0.00-0.00); Immature Granulocyte Percent A 0.4 % (0.0-0.0); Lymphocytes Absolute Auto 1.98 K/mm3 (1.10-4.50); Lymphocytes Percent Auto 28.4 % (18.0-42.0); Mean Corpuscular HGB Conc 34.1 g/dL (32.0-36.0); Mean Corpuscular Hemoglobin 28.5 pg (27.0-31.0); Mean Corpuscular Volume 83.6 fL (78.0-102.0); Mean Platelet Volume 9.3 fl (9.2-11.8); Monocytes Absolute Auto 0.42 K/mm3 (0.10-0.90); Neutrophils Absolute Auto 4.5 K/mm3 (1.7-7.2); Neutrophils Percent Auto 64.1 % (50.0-70.0); Platelet Count Result 272 K/mm3 (150-420); Red Blood Count 4.63 M/mm3 (4.20-5.40); Red Cell Distribution Width 12.6 % (11.6-14.4)
[2023-09-06 09:52] LABS: Alanine Aminotransferase 32 U/L (14-59); Albumin Level 3.7 g/dL (3.4-5.0); Alkaline Phosphatase 88 U/L (46-116); Anion Gap 10 mmol/L (8-16); Aspartate Amino Transferase 19 U/L (15-37); Bilirubin,Total 0.7 mg/dL (0.00-1.00); Blood Urea Nitrogen 10 mg/dL (7-18); CRP 1.5 mg/dL (0.0-0.9); Calcium 9.2 mg/dL (8.5-10.1); Carbon Dioxide 27 mmol/L (21-32); Chloride 102 mmol/L (98-108); Estimated Glomerular Filt Rate > 60; Glucose 104 mg/dL (70-99); Osmolality Calculated 287 mOsm/kg (285-295); Potassium 4.1 mmol/L (3.5-5.1); Sodium 139 mmol/L (136-145); Total Protein 6.9 g/dL (6.4-8.2)
[2023-09-06 10:10] LABS: SARS-CoV-2 RNA PCR Negative (Negative)
== END 2023-09-06 09:07 | disposition home or self-care (01) ==
LOC: CHSLAB 09:08
PROVIDERS: PCP Internal Medicine; Visit Provider Internal Medicine
DX: R50.9 Fever, unspecified (principal); J32.9 Chronic sinusitis, unspecified
CPT/HCPCS: 36415; 70220; 80053; 85025; 86140; 87635

== ENCOUNTER 2024-01-30 10:22 | Outpatient (CLI) | payer OTHER, SELFPAY ==
[2024-01-30 11:14] LABS: SARS-CoV-2 RNA PCR Positive (Negative)
[2024-01-30 11:16] LABS: RSV RNA, RT-PCR Negative (Negative)
== END 2024-01-30 10:23 | disposition home or self-care (01) ==
LOC: CHSLAB 10:23
PROVIDERS: PCP Internal Medicine; Visit Provider Internal Medicine
DX: U07.1 COVID-19 (principal); J06.9 Acute upper respiratory infection, unspecified
CPT/HCPCS: 87634; 87635

== ENCOUNTER 2024-03-09 13:31 | Outpatient (CLI) | payer OTHER, SELFPAY ==
--- NOTE | 2024-04-17 08:43 | WPDHOLTEREM ---
Holter/Event Monitor Holter/Event Monitor Date of procedure: 03/09/24 Holter/Event Procedure: Event Monitor Indications: Palpitations Conclusion: 1. 28 days event monitor between 03/09/24-04/09/24. There are 42 available transmissions for analysis. 2. Underlying rhythm is sinus rhythm. HR range 61-169 bpm; average HR 99 bpm. HR at 169 bpm was on 03/24/24 at 21:09. 3. There are occasional premature supraventricular complexes with total burden of <1%. No supraventricular tachycardia. 4. There are occasional premature ventricular complexes with total burden of <1%. No ventricular tachycardia. 5. No significant pauses greater than 2 seconds. 6. Patient reports 29 episodes of symptoms of heart racing, chest pain, lightheadedness, dizziness, shortness of breath, and symptoms other than listed which demonstrate sinus rhythm, HR range 77-151 bpm and 1 PAC.
== END 2024-03-09 13:32 | disposition home or self-care (01) ==
PROVIDERS: PCP Internal Medicine
DX: R00.2 Palpitations (principal); E66.01 Morbid (severe) obesity due to excess calories; Z68.41 Body mass index [BMI] 40.0-44.9, adult; R73.09 Other abnormal glucose
CPT/HCPCS: 93270

== ENCOUNTER 2024-03-20 17:55 | Emergency (ER) | payer OTHER, SELFPAY ==
[2024-03-20 17:55] VITALS: BP 145/111; PULSE 115; RESP 20; TEMP 36.6; O2SAT 97
--- NOTE | 2024-03-20 17:59 | ED.FEMALEGU ---
HPI - Female Genitourinary General Chief complaint: Urogenital-Female Stated complaint: Flank Pain Time Seen by Provider: 03/20/24 17:57 Source: patient Mode of arrival: ambulatory Limitations: no limitations History of Present Illness HPI Narrative: Patient is a 23-year-old female with lower back pain and some left lower quadrant and suprapubic pain. This started today. She is having end urinary burning. MD elicited complaint: dysuria, UTI , pelvic pain and back pain Onset (ago): day(s) (1) Location of symptoms: suprapubic, LLQ, pelvis and low back Severity: moderate Female Urogenital Radiation: Suprapubic Severity scale (1-10): 3 Quality of pain: cramping, sharp and dull Consistency: intermittent Vaginal discharge: none Vaginal bleeding: none Urinary symptoms: Dysuria and Frequency Exacerbating factors: none Relieving factors: none Associated symptoms: abdominal pain Treatment prior to arrival: none Sexual activity: Yes Patient : No Related Data Home Medications Medication Instructions Recorded Confirmed omeprazole 20 mg capsule,delayed 20 mg PO DAILY 06/02/21 03/20/24 release oxcarbazepine 300 mg tablet 300 mg PO BID 06/02/21 03/20/24 sertraline 100 mg tablet 150 mg PO DAILY 06/02/21 03/20/24 nortriptyline 50 mg capsule 75 mg PO HS 07/06/22 03/20/24 trazodone 50 mg tablet 50 mg PO HS 07/06/22 03/20/24 doxepin 10 mg capsule 10 mg PO DAILY 03/20/24 03/20/24 Allergies Allergy/AdvReac Type Severity Reaction Status Date / Time No Known Allergies Allergy Verified 10/25/22 16:13 Review of Systems Review of Systems: All systems reviewed & are unremarkable except as noted in HPI and below Constitutional: Constitutional: Reports no additional constitutional complaints Eyes: Eyes: Reports no additional eye complaints ENT: Reports system reviewed and no additional complaints, except as documented Cardiovascular: Cardiovascular: Reports no additional cardiovascular complaints Respiratory: Respiratory: Reports no additional respiratory complaints Gastrointestinal: Gastrointestinal: Reports no additional gastrointestinal complaints Genitourinary: Genitourinary: Reports no additional female genitourinary complaints Musculoskeletal: Musculoskeletal: Reports no additional musculoskeletal complaints Integumentary/Breasts: Skin/Breast: Reports system reviewed and no additional complaints, except as docu Neurologic: Reports system reviewed and no additional complaints, except as documented Psychiatric: Psychiatric: Reports no additional psychiatric complaints Endocrine: Endocrine: Reports no additional endocrine complaints Hematologic/Lymphatic: Hematologic/Lymphatic: Reports no additional hematologic/lymphatic complaints Allergic/Immunologic: Allergic/Immunologic: Reports no additional allergic/immunologic complaints PMFSH Past Medical History Medical History GERD (gastroesophageal reflux disease) Mood disorder Surgical History Surgical History No significant past surgical history Family History Family History Father Hypertension Diabetes mellitus Hyperlipidemia Social History Social History Smoking status: Never smoker Alcohol intake: never Additional occupation/education comments: works at [employer] Gender identity (if verbalized by the patient): Female Sexual Orientation (if Verbalized by the Patient): Straight or Heterosexual Exam Const: General: healthy appearing Nutritional Appearance: well nourished Orientation/consciousness: patient oriented x3 HENMT: Head: normal to inspection Ears: external ears normal Face/Nose/Sinus: Normal external nose present Eyes: Conjunctivae: conjunctivae normal Pupils: Equal, round and reactive pupils present
--- NOTE | 2024-03-20 18:05 | PC.NURSE ---
patient was sent to the bathroom to give urine sample
--- NOTE | 2024-03-20 18:15 | PC.NURSE ---
urine sent to lab
[2024-03-20 18:18] LABS: Appearance Urine Clear (Clear); Bilirubin Urine Negative (Negative); Blood Urine Trace-intact (Negative); Color Urine Light Yellow (Yellow); Glucose Urine UA Negative (Negative); Ketones Urine Negative (Negative); Leukocyte Esterase Ur 1+ LEU/UL (Negative); Nitrate Urine Negative (Negative); Protein Urine Negative (Negative); Specific Grav Ur 1.015 (1.010-1.020); Urobilinogen Urine 0.2 mg/dL (0.2-1.0)
[2024-03-20 18:22] LABS: Add Urine Microscopic? YES; Bacteria Urine 1+ /hpf; RBC Urine 0-2 /hpf (0-2); Squamous Epithelial Cell Urine Rare /hpf (Few)
[2024-03-20 18:23] LABS: Pregnancy On Board Control Positive; Urine Pregnancy Test Negative
[2024-03-20] MEDS: CIPROFLOXACIN 500 MG TAB PO (18:46)
--- NOTE | 2024-03-20 19:03 | PC.NURSE ---
resting on stretcher. no needs voiced at this time
--- NOTE | 2024-03-23 12:28 | PC.NURSE ---
Final urine culture resulted, ERP states no change to discharge antibiotic needed.
== END 2024-03-20 19:38 | disposition home or self-care (01) ==
PROVIDERS: Emergency Provider Emergency Medicine; PCP Internal Medicine
DX: N30.01 Acute cystitis with hematuria (principal); K21.9 Gastro-esophageal reflux disease without esophagitis
CPT/HCPCS: 81001; 81025; 87077; 87086; 87088; 99283; A9270